=== PATIENT | male | born 1980 | race Caucasian/White ===

== ENCOUNTER 2017-06-09 18:13 | Emergency (ER) | payer BC ==
[2017-06-09 18:29] VITALS: RESP 16; TEMP 99.4
[2017-06-09] MEDS ORDERED: SODIUM CHLORIDE 0.9% 500 ML IV STA (18:44)
--- NOTE | 2017-06-09 18:57 | ED ---
Abdominal Pain HPI - General Chief Complaint: Abdominal Pain Stated Complaint: Abd Pain Time Seen by Provider: 06/09/17 18:38 Source: patient Mode of arrival: ambulatory Limitations: no limitations - History of Present Illness Initial Comments: 36-year-old male patient possessed to emergency department today with complaints of right lower quadrant abdominal pain. States that this has been going on for the last 2 days. Patient states pain worsens when he applies pressure to the area or sits forward. He states occasionally the pain does radiate around to his side. He denies any fever, chills, nausea, vomiting, or diarrhea with this. He states he has been constipated. He states he did have a bowel movement last night however it was hard and difficult to pass. Patient denies any recent rash, shortness breath, chest pain, back pain, numbness, tingling, dizziness, weakness, hematuria, dysuria, urinary urgency, urinary frequency, headache, visual changes, or any other complaints. - Related Data Home Medications Medication Instructions Recorded Confirmed Bisoprolol-Hctz 5-6.25 mg [Ziac 1 tab PO DAILY 06/09/17 06/09/17 5-6.25] Citalopram Hydrobromide [CeleXA] 20 mg PO DAILY 06/09/17 06/09/17 Cyclobenzaprine [Flexeril] 10 mg PO BID PRN 06/09/17 06/09/17 HYDROcodone/APAP 7.5-325MG [[place] 0.5 - 1 tab PO DAILY PRN 06/09/17 06/09/17 7.5-325] Nystatin 100,000Unit/gm Cream 1 applic TOPICAL BID 06/09/17 06/09/17 [Mycostatin Cream] Terbinafine [LamISIL] 250 mg PO DAILY 06/09/17 06/09/17 Triamcinolone 0.1% Cream [Kenalog] 1 applicatio TOPICAL BID 06/09/17 06/09/17 Allergies Allergy/AdvReac Type Severity Reaction Status Date / Time No Known Allergies Allergy Verified 06/09/17 18:39 Review of Systems ROS Statement: Those systems with pertinent positive or pertinent negative responses have been documented in the HPI. ROS Other: All systems not noted in ROS Statement are negative. Past Medical History Past Medical History: Hypertension History of Any Multi-Drug Resistant Organisms: None Reported Past Surgical History: No Surgical Hx Reported Past Psychological History: Anxiety Smoking Status: Current every day smoker Past Alcohol Use History: Occasional Past Drug Use History: None Reported General Exam Limitations: no limitations General appearance: alert, in no apparent distress, other (This is a well- developed, well-nourished adult male patient in no acute distress. Vital signs upon presentation were temperature 99.4F, pulse 73, respirations 16, blood pressure 143/95, pulse ox 99% on room air.) Eye exam: Present: normal appearance, PERRL, EOMI. Absent: scleral icterus, conjunctival injection, periorbital swelling ENT exam: Present: normal exam, normal oropharynx, mucous membranes moist Neck exam: Present: normal inspection. Absent: tenderness, meningismus, lymphadenopathy Respiratory exam: Present: normal lung sounds bilaterally. Absent: respiratory distress, wheezes, rales, rhonchi, stridor Cardiovascular Exam: Present: regular rate, normal rhythm, normal heart sounds. Absent: systolic murmur, diastolic murmur, rubs, gallop, clicks GI/Abdominal exam: Present: soft, tenderness (Right lower quadrant pain/ tenderness with palpation of the right lower quadrant and left lower quadrant.) , normal bowel sounds. Absent: distended, guarding, rebound, rigid Back exam: Present: normal inspection. Absent: CVA tenderness (R), CVA tenderness (L) Neurological exam: Present: alert, oriented X3, CN II-XII intact Psychiatric exam: Present: normal affect, normal mood Skin exam: Present: warm, dry, intact, normal color. Absent: rash Course Vital Signs 06/09/17 06/09/17 18:28 20:10 Temperature 99.4 F Pulse Rate 73 69 Respiratory 16 16 Rate Blood Pressure 143/95 141/77 O2 Sat by Pulse 99 97 Oximetry Medical Decision Making - Medical Decision Making 36-year-old male patient presented for evaluation of right lower quadrant abdominal discomfort. Physical examination did reveal some mild right lower quadrant tenderness. Labs and x-ray were reviewed, results are unremarkable. Patient did report during history that he was not having normal bowel movements , they were harder than usual. I did explain to him that we cannot completely rule out appendicitis at this time. I did discuss possibility of CT scanning with the patient. He did agree to forego scanning at this time. I did educate them regarding the signs or symptoms of appendicitis and urged him to return immediately should he develop any of these symptoms. I instructed him to follow -up with his primary care physician for recheck in 1-2 days. I instructed him to return immediately for any new, worsening, or concerning symptoms. He verbalized understanding and agreed with this plan. - Lab Data Result diagrams: 06/09/17 19:16 06/09/17 19:16 Lab Results 06/09/17 06/09/17 06/09/17 Range/Units 19:16 19:16 19:16 WBC 6.2 (3.8-10.6) k/uL RBC 5.37 (4.30-5.90) m/uL Hgb 16.2 (13.0-17.5) gm/dL Hct 49.9 (39.0-53.0) % MCV 93.0 (80.0-100.0) fL MCH 30.1 (25.0-35.0) pg MCHC 32.4 (31.0-37.0) g/dL RDW 14.5 (11.5-15.5) % Plt Count 152 (150-450) k/uL Neutrophils % 62 % Lymphocytes % 25 % Monocytes % 8 % Eosinophils % 3 % Basophils % 1 % Neutrophils # 3.9 (1.3-7.7) k/uL Lymphocytes # 1.6 (1.0-4.8) k/uL Monocytes # 0.5 (0-1.0) k/uL Eosinophils # 0.2 (0-0.7) k/uL Basophils # 0.0 (0-0.2) k/uL Sodium 141 (137-145) mmol/L Potassium 4.4 (3.5-5.1) mmol/L Chloride 107 (98-107) mmol/L Carbon Dioxide 27 (22-30) mmol/L Anion Gap 7 mmol/L BUN 13 (9-20) mg/dL Creatinine 0.93 (0.66-1.25) mg/dL Est GFR (MDRD) Af Amer >60 (>60 ml/min/1.73 sqM) Est GFR (MDRD) Non-Af >60 (>60 ml/min/1.73 sqM) Glucose 92 (74-99) mg/dL Calcium 9.4 (8.4-10.2) mg/dL Total Bilirubin 0.5 (0.2-1.3) mg/dL AST 28 (17-59) U/L ALT 73 H (21-72) U/L Alkaline Phosphatase 51 (38-126) U/L Total Protein 7.3 (6.3-8.2) g/dL Albumin 4.5 (3.5-5.0) g/dL Amylase 47 (30-110) U/L Lipase 75 (23-300) U/L Urine Color Light Yellow Urine Appearance Clear (Clear) Urine pH 5.5 (5.0-8.0) Ur Specific [place] 1.006 (1.001-1.035) Urine Protein Negative (Negative) Urine Glucose (UA) Negative (Negative) Urine Ketones Negative (Negative) Urine Blood Negative (Negative) Urine Nitrite Negative (Negative) Urine Bilirubin Negative (Negative) Urine Urobilinogen <2.0 (<2.0) mg/dL Ur Leukocyte Esterase Negative (Negative) - Radiology Data Radiology results: report reviewed, image reviewed KUB of the abdomen was obtained and did show scattered gas seen in nondistended small bowel loops. Gas and fecal material seen in nondistended colon and rectum. There is no visceromegaly, pneumoperitoneum, or abnormal calcification appreciated. The lung bases are clear and the osseous structures are intact. Impression by Dr. Talbot shows overall nonobstructive bowel gas pattern. Disposition Clinical Impression: Abdominal pain Disposition: HOME SELF-CARE Condition: Good Instructions: Abdominal Pain (ED) Additional Instructions: Increase fluids. Use stool softeners. Follow up with her primary care physician for recheck in 1-2 days. Return here immediately for any new, worsening, or concerning symptoms. Referrals: Rose Marie Dhillon MD [Primary Care Provider] - 1-2 days Time of Disposition: 20:27
[2017-06-09 19:30] LABS: Appearance,Urine Clear (Clear); Basophils % (A) 1 %; Bilirubin,Urine Negative (Negative); CH 31.8; CHCM 34.4; Eosinophils # (A) 0.2 k/uL (0-0.7); Eosinophils % (A) 3 %; Glucose,Urine (UA) Negative (Negative); HCT 49.9 % (39.0-53.0); HDW 2.43; HGB 16.2 gm/dL (13.0-17.5); Ketones,Urine Negative (Negative); Leukocyte Esterase,Urine Negative (Negative); Luc # (Auto) 0.11; Luc % (Auto) 2; Lymphocytes # (A) 1.6 k/uL (1.0-4.8); Lymphocytes % (A) 25 %; MCH 30.1 pg (25.0-35.0); MCHC 32.4 g/dL (31.0-37.0); Mean Platelet Volume 9.6; Monocytes # (A) 0.5 k/uL (0-1.0); Monocytes % (A) 8 %; Neutrophils # (A) 3.9 k/uL (1.3-7.7); Neutrophils % (A) 62 %; Nitrite,Urine Negative (Negative); PH, Urine 5.5 (5.0-8.0); Protein,Urine Negative (Negative); RBC 5.37 m/uL (4.30-5.90); RDW 14.5 % (11.5-15.5); Specific Gravity,Urine 1.006 (1.001-1.035); UA Billing (MACRO vs. MICRO) CHEM; Urobilinogen,Urine <2.0 mg/dL (<2.0); WBC 6.2 k/uL (3.8-10.6); WBC (Perox) 6.11
[2017-06-09 19:40] LABS: ALT 73 U/L (21-72); AST 28 U/L (17-59); Alkaline Phosphatase 51 U/L (38-126); Amylase 47 U/L (30-110); Anion Gap 7 mmol/L; Blood Urea Nitrogen 13 mg/dL (9-20); Calcium 9.4 mg/dL (8.4-10.2); Carbon Dioxide 27 mmol/L (22-30); Chloride 107 mmol/L (98-107); Glucose 92 mg/dL (74-99); Non-African American GFR(MDRD) >60 (>60 ml/min/1.73 sqM); Potassium 4.4 mmol/L (3.5-5.1); Sodium 141 mmol/L (137-145); Total Bilirubin 0.5 mg/dL (0.2-1.3); Total Protein 7.3 g/dL (6.3-8.2)
--- NOTE | 2017-06-09 20:00 | XR ---
EXAMINATION TYPE: XR KUB DATE OF EXAM: 06/09/2017 7:55 PM CLINICAL HISTORY: Right lower quadrant pain for 2 days. TECHNIQUE: Two Upright KUB images of the abdomen are obtained. COMPARISON: CT abdomen and pelvis July 08, 2010. FINDINGS: Scattered gas is seen in non-distended small bowel loops. Gas and fecal material is seen in non-distended colon and rectum. There is no visceromegaly, pneumoperitoneum, or abnormal calcificati on appreciated. The lung bases are clear and the osseous structures are intact. IMPRESSION: Overall nonobstructive bowel gas pattern.
[2017-06-09 20:11] VITALS: BP 141/77; PULSE 69
[2017-06-09] MEDS ORDERED: MAGNESIUM CITRATE 296 ML BOTTLE PO ONE (20:27)
== END 2017-06-09 20:39 | disposition home or self-care (01) ==
LOC: EC 18:13
DX: R10.31 Right lower quadrant pain (principal); K59.00 Constipation, unspecified; I10 Essential (primary) hypertension; F17.200 Nicotine dependence, unspecified, uncomplicated; Z79.52 Long term (current) use of systemic steroids; Z79.899 Other long term (current) drug therapy
CPT/HCPCS: 36415; 74000; 80053; 80074; 81003; 82150; 83690; 85025; 99284

== ENCOUNTER → 2018-10-01 | Outpatient (CLI) | payer BC ==
[2018-10-01 09:52] LABS: Basophils # (A) 0.1 k/uL (0-0.2); Basophils % (A) 1 %; Eosinophils # (A) 0.3 k/uL (0-0.7); Eosinophils % (A) 3 %; HCT 52.5 % (39.0-53.0); HGB 17.1 gm/dL (13.0-17.5); Lymphocytes # (A) 1.4 k/uL (1.0-4.8); Lymphocytes % (A) 18 %; MCH 30.5 pg (25.0-35.0); MCHC 32.6 g/dL (31.0-37.0); MCV 93.4 fL (80.0-100.0); Mean Platelet Volume 8.5; Monocytes # (A) 0.6 k/uL (0-1.0); Monocytes % (A) 7 %; Neutrophils # (A) 5.5 k/uL (1.3-7.7); Neutrophils % (A) 69 %; Platelet Count 175 k/uL (150-450); RBC 5.63 m/uL (4.30-5.90); RDW 13.3 % (11.5-15.5)
[2018-10-01 10:12] LABS: Potassium 4.6 mmol/L (3.5-5.1)
== END | disposition home or self-care (01) ==
LOC: LABPAT 09:09
PROVIDERS: ATTEND Orthopaedic Surgery
DX: Z01.818 Encounter for other preprocedural examination (principal); M75.101 Unspecified rotator cuff tear or rupture of right shoulder, not specified as traumatic
CPT/HCPCS: 36415; 80051; 85025; 93005

== ENCOUNTER 2018-10-05 08:47 | Day surgery (SDC) | payer BC ==
[2018-10-01 13:45] VITALS: BMI 33.9
--- NOTE | 2018-10-04 09:14 | HP ---
HISTORY AND PHYSICAL CHIEF COMPLAINT: Right shoulder pain. 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 He was cutting wood and noticed pain and then was wrestling someone and pain increased. He is having pain with overhead use and at night. He has tried therapy, medications, and an injection with only partial temporary relief. He notes the pain significantly limits him. PAST MEDICAL HISTORY: Significant for hypertension. PAST SURGICAL HISTORY: Negative. CURRENT MEDICATIONS: Hydrochlorothiazide and citalopram. ALLERGIES: He denies drug allergies. FAMILY HISTORY: Significant for diabetes. SOCIAL HISTORY: Significant for 3/4 pack per day tobacco use and daily alcohol use. REVIEW OF SYSTEMS: Sixteen-point review of systems otherwise reviewed and is noncontributory. PHYSICAL EXAMINATION: On examination, the patient is approximately 6 feet tall, 245 pounds of endomorphic habitus. HEENT exam is nonfocal. Neck is supple. On examination of the right shoulder, he is tender about the anterior subacromial space. He has moderate subacromial crepitus. Active range of motion forward elevation 90 degrees, external rotation with the arm side 75 degrees, internal rotation to L2. Passively I am able to forward flex him to 160 degrees. Motor strength is 5/5 for external rotation, 5 minus over 5 for abduction. Impingement test, Neer test, and Speed tests are positive. His distal neurovascular exam otherwise appears intact in the right upper extremity. MRI report from 07/09/2018 shows a partial thickness bursal surface tear of the rotator cuff. IMPRESSION: Right shoulder impingement with symptomatic partial-thickness rotator cuff tear. RECOMMENDATIONS: I talked to the patient at length regarding his condition and treatment options. At this point, he is quite symptomatic despite conservative measures. After thorough discussion, he opts to proceed with surgery. We will plan to proceed with arthroscopic evaluation with probable subacromial decompression and possible rotator cuff debridement. Risks and benefits were discussed at length in layman's terms. We will likely perform that as an outpatient procedure. MMODL / IJN: [id number] /
[~2018-10-05 08:47] MED LIST: DEXAMETHASONE SOD PHOSPHATE 10 MG/ML 1 ML VIAL IV ONE; HYDROmorphone 0.5 MG/0.5 ML SYRINGE IVP PRN; LACTATED RINGERS 1,000 ML IV SCH; LIDOCAINE 1% 20 ML VIAL (10MG/ML) FOR IV START INTRADERMA PRN; ONDANSETRON 4 MG/2 ML VIAL IVP ONE; SCOPOLAMINE 1.5MG/72HR PATCH TRANSDERM ONE; ceFAZolin IN SWFI 2 GM/20 ML SYRINGE IVP ONE
[2018-10-05] MEDS ORDERED: MIDAZOLAM 2 MG/2 ML VIAL IV ONE (09:50)
[2018-10-05] MEDS ORDERED: MIDAZOLAM 2 MG/2 ML VIAL ONE (10:28)
[2018-10-05] MEDS ORDERED: GLYCOPYRROLATE 0.2 MG/ML 2 ML VIAL ONE (10:28)
[2018-10-05] MEDS ORDERED: LIDOCAINE 1% INJ 10MG/ML (20 ML MDV) ONE (10:28)
[2018-10-05] MEDS ORDERED: NEOSTIGMINE 1 MG/ML 10 ML VIAL ONE (10:28)
[2018-10-05] MEDS ORDERED: ROCURONIUM BROMIDE 10 MG/ML 10 ML VIAL IV ONE (10:28)
[2018-10-05] MEDS ORDERED: ePHEDrine SULFATE/0.9% NACL/PF 50 MG/5 ML SYRINGE IV ONE (10:28)
[2018-10-05] MEDS ORDERED: SUCCINYLCHOLINE CHLORIDE 100 MG/5 ML SYR IV ONE (10:28)
[2018-10-05] MEDS ORDERED: PROPOFOL 10 MG/ML 20 ML VIAL IV ONE (10:28)
[2018-10-05] MEDS ORDERED: fentaNYL (PF) 50 MCG/ML 2 ML AMP ONE (10:28)
[2018-10-05] MEDS ORDERED: ROPIVACAINE 5 MG/ML 30 ML VIAL ONE (10:28)
[2018-10-05] MEDS ORDERED: EPINEPHrine (PF) 1 ML in SODIUM CHLORIDE 0.9% IRRIGATIO 3,000 ML IRRIGATION ONE ×7 (11:07→11:08)
--- NOTE | 2018-10-05 11:58 | P.OP ---
Date of Procedure: 10/05/18 Preoperative Diagnosis: Right shoulder impingement/symptomatic rotator cuff tear Postoperative Diagnosis: Same in addition to 2 cm full-thickness rotator cuff tear, type II superior labral tear Procedure(s) Performed: Right shoulder arthroscopic subacromial decompression/rotator cuff repair/ superior labral debridement Implants: Arthrex 4.75 mm swivel lock anchor 4 Anesthesia: vin KUMAR Surgeon: Christopher Salgado Financial Services Intern #1: Donald Richey Estimated Blood Loss (ml): 10 Pathology: none sent Condition: stable Disposition: PACU Indications for Procedure: The patient's a 37-year-old male presents after injuring his right shoulder or previously with persistent symptoms. He did try conservative measures without much resolution. A discussion of the risks and benefits of operative intervention was made with patient. He opted to proceed. Operative risks to include infection, neurovascular injury, development of blood clots, possible incomplete resolution of symptoms, possible tendon rerupture, and possible need for subsequent procedures was discussed. Informed consent was obtained. Operative Findings: As below Description of Procedure: The patient was brought to the operating room, and after induction of general anesthesia was placed in a beachchair position. A preoperative interscalene block was placed for postoperative analgesia. I examined the right shoulder. There was no gross block to passive motion or gross glenohumeral instability. The right upper extremity was prepped and draped in normal fashion. The bony outlines the acromion, distal clavicle, and coracoid process were outlined with a skin marker. The glenohumeral joint was inflated with 50 mL of saline utilizing a spinal needle from posterior approach. A posterior portal was made through a 5 mm skin incision 1 cm medial and inferior to the posterior lateral border time. A blunt trocar was used to easily into the joint. Diagnostic arthroscopy was performed. An anterior portal was made just lateral to the coracoid process entering the joint above the subscapularis tendon. The subscapularis tendon appeared to be intact. Anterior labrum was intact. The inferior recess was inspected. The posterior labrum was intact. A type II superior labral tear was noted in this was debrided back to stable base with a motorized shaver. The remainder the anchor appeared to be stable and intact. The intra-articular portion of the biceps was intact. On inspection the rotator cuff a full-thickness tear involving the supraspinatus was noted. The posterior portion of the cuff was intact. The arthroscope was placed into the subacromial space. A lateral portal was made 2 centimeters inferior to the anterior lateral border of the acromion. A 2 cm tear involving the supraspinatus was noted with minimal retraction. This was then easily brought back to the greater tuberosity. The soft tissue on the undersurface of the acromion was debrided with a motorized shaver and electrocautery clearly defining the anterior medial and lateral borders as well as the distal clavicle. An anterior inferior acromioplasty was performed with a motorized citlaly starting anterolateral, then extending this posteriorly, then extending this medially. I converted to a flat acromion and this was verified in the posterior and lateral viewing portals. The greater tuberosity was lightly decorticating with a shaver down to a bleeding bony surface. An accessory superior lateral portals made just off the lateral edge of the acromion for anchor placement. 2 anchors were then placed just off the articular surface with the appropriate starting awl. 4.75 mm anchors preloaded with #2 fiber tape were placed. Good purchase was obtained. These fiber tapes were then passed the rotator cuff with a scorpion suture passer. A lateral row was created crisscrossing these tapes. 2 swivel lock anchors were placed laterally. Good purchase was obtained. Final arthroscopic view showed adequate compression at the footprint. The arthroscope was then removed. The portals were closed with simple 3-0 nylon sutures. A sterile dressing was applied in addition to an abductor brace. The patient was then awoken from general anesthesia and transferred to recovery room in good condition. Blood loss was estimated at 10 mL. No complications were incurred. Sponge and needle counts were correct in the case. Aron THOMASON assisted and the major components of the case to include arm positioning, anchor placement, and rotator cuff repair.
[2018-10-05 12:08] VITALS: TEMP 97
[2018-10-05 12:18] VITALS: RESP 16
[2018-10-05 13:39] VITALS: BP 135/78; PULSE 72
--- NOTE | 2018-10-06 07:15 | P.ONQ ---
Anesthesiology Proc Note - PNB - Peripheral Nerve Block Performed Right Interscalene Single Time Out Performed: Yes Procedure Start Time: :51 Procedure Stop Time: :57 Indication: Acute Post-Operative Pain, Requested by physician Sedation Type: Sedate with meaningful contact maintained Preparation: Sterile Dressing Needle Size: 50mm (2") Needle Gauge: 21 Technique: Ultrasound Injectate: 0.5% Ropivacaine (see comment for volume) (ropi .5% 30cc) Blood Aspirated: No Pain Paresthesia on Injection Noted: No Resistance on Injection: Normal Events: Uneventful and Well Tolerated
== END 2018-10-05 13:56 | disposition home or self-care (01) ==
LOC: OR 08:47
PROVIDERS: ATTEND Orthopaedic Surgery
DX: S46.011A Strain of muscle(s) and tendon(s) of the rotator cuff of right shoulder, initial encounter (principal); S43.431A Superior glenoid labrum lesion of right shoulder, initial encounter; X50.9XXA Other and unspecified overexertion or strenuous movements or postures, initial encounter; Y93.72 Activity, wrestling; I10 Essential (primary) hypertension; F17.210 Nicotine dependence, cigarettes, uncomplicated; F32.9 Major depressive disorder, single episode, unspecified; E66.9 Obesity, unspecified; Z68.33 Body mass index [BMI] 33.0-33.9, adult; Z79.899 Other long term (current) drug therapy
CPT/HCPCS: 64415; 29826; 29827; C1713 ×2; J2250; J1100; J2710; J2405; J0171; J2001; J3010; J2795; J0330; J2704; J0690

== ENCOUNTER 2019-04-09 20:02 | Emergency (ER) | payer BC ==
[2019-04-09 20:07] VITALS: TEMP 98.9
[2019-04-09] MEDS ORDERED: DIPH,PERTUS(ACELL)TETVAC-LF 0.5 ML VIAL IM ONE (20:12)
[2019-04-09] MEDS ORDERED: IBUPROFEN 600 MG TAB PO STA (20:12)
[2019-04-09] MEDS ORDERED: ACETAMINOPHEN TAB 325 MG TAB PO STA (20:12)
--- NOTE | 2019-04-09 20:15 | ED ---
General Adult HPI - General Chief complaint: Skin/Abscess/Foreign Body Stated complaint: FB, foot Time Seen by Provider: 04/09/19 20:09 Source: patient, family Mode of arrival: ambulatory Limitations: no limitations - History of Present Illness Initial comments: 38 year-old male patient presents to the emergency department today for evaluation after accidentally shooting his foot with a nail gun. Patient states he accidentally fired a second shot and the nail went into the left great toe at the MTP joint area. Patient states there is minimal pain. Bleeding is controlled. Denies any other injuries. Denies any bleeding disorders. Denies any numbness or tingling to the toe. He is unsure when his last tetanus vaccine was administered. Patient denies any headache, neck pain, back pain, chest pain, shortness of breath, dizziness, weakness, abdominal pain, nausea, vomiting, or difficulties with bowel movements or urination. - Related Data Home Medications Medication Instructions Recorded Confirmed Bisoprolol-Hctz 5-6.25 mg [Ziac 1 tab PO DAILY@1500 06/09/17 04/09/19 5-6.25] Citalopram Hydrobromide [CeleXA] 20 mg PO DAILY@1500 06/09/17 04/09/19 Previous Rx's Medication Instructions Recorded Cephalexin [Keflex] 500 mg PO Q6H #28 cap 04/09/19 Allergies Allergy/AdvReac Type Severity Reaction Status Date / Time No Known Allergies Allergy Verified 04/09/19 20:29 Review of Systems ROS Statement: Those systems with pertinent positive or pertinent negative responses have been documented in the HPI. ROS Other: All systems not noted in ROS Statement are negative. Past Medical History Past Medical History: Hypertension, Musculoskeletal Disorder, Seizure Disorder Additional Past Medical History / Comment(s): seizure w/fever as a baby-nothing since,recent problem w/trouble having BM, seen in [facility], "backed up", was given something, & was able to go & since then has had blood w/wiping History of Any Multi-Drug Resistant Organisms: None Reported Past Surgical History: Orthopedic Surgery Additional Past Surgical History / Comment(s): wisdom teeth removed Past Anesthesia/Blood Transfusion Reactions: Family History of Problems w/ Anesthesia Additional Past Anesthesia/Blood Transfusion Reaction / Comment(s): father had problem w/heart rate we/anesthesia Past Psychological History: Anxiety Smoking Status: Current every day smoker Past Alcohol Use History: Heavy Past Drug Use History: None Reported - Past Family History Mother Family Medical History: No Reported History General Exam Limitations: no limitations General appearance: alert, in no apparent distress, other (Physical well- developed, well-nourished adult male patient in no acute distress. Vital signs upon presentation are temperature 98.9F, pulse 108, respirations 20, blood pressure 174/97, pulse ox 97% on room air.) Eye exam: Present: normal appearance, PERRL, EOMI. Absent: scleral icterus, conjunctival injection, periorbital swelling ENT exam: Present: normal exam, normal oropharynx, mucous membranes moist Respiratory exam: Present: normal lung sounds bilaterally. Absent: respiratory distress, wheezes, rales, rhonchi, stridor Cardiovascular Exam: Present: regular rate, normal rhythm, normal heart sounds. Absent: systolic murmur, diastolic murmur, rubs, gallop, clicks Extremities exam: Present: full ROM, normal capillary refill, other (There is nail protruding from the lateral aspect of the left MTP joint. Minimal bleeding. Skin is otherwise pink, warm, dry. Cap refills less than 3 seconds. Pedal and posttibial pulses are 2+ and equal bilaterally.). Absent: normal inspection, tenderness, pedal edema, joint swelling, calf tenderness Neurological exam: Present: alert, oriented X3, CN II-XII intact Psychiatric exam: Present: normal affect, normal mood Skin exam: Present: warm, dry, intact, normal color. Absent: rash Course Vital Signs 04/09/19 04/09/19 20:03 22:01 Temperature 98.9 F Pulse Rate 108 H 92 Respiratory 20 16 Rate Blood Pressure 174/97 136/90 O2 Sat by Pulse 97 98 Oximetry Procedures - Nerve Block Consent Obtained: verbal consent Local Anesthetic Used: Lidocaine 1% Amount of anesthesia used: 6 Side: left Nerve Blocks: digital (Left great toe) Procedure Successful: Yes Complications: none Patient Tolerated Procedure: well Medical Decision Making - Medical Decision Making 38 old male patient presented to the emergency department today for evaluation after accidentally shooting a nail into his toe. Physical examination did reveal a nail protruding from the lateral aspect of the left great toe. X-ray was obtained. Digital block was performed nail was removed. Nail removed very easily indicating soft tissue protrusion only. He was irrigated. Started on antibiotics. He'll be discharged at this time to follow-up with his primary care physician for recheck. Return parameters were discussed in detail. He verbalizes understanding and agrees with this plan. - Radiology Data Radiology results: report reviewed, image reviewed 3 views of the left foot were obtained. Report reviewed in its entirety. Impression by Dr. Talbot shows metallic foreign body or nail piercing the first proximal phalanx proximal to mid diaphysis from dorsal approach extending laterally and anteriorly. No acute fracture dislocation. Disposition Clinical Impression: Puncture wound of left great toe with foreign body without damage to nail Disposition: HOME SELF-CARE Condition: Good Instructions (If sedation given, give patient instructions): Puncture Wound (ED) Additional Instructions: Keep wound clean and dry. Monitor for signs or symptoms of infection including but not limited to redness, swelling, drainage of pus, fever, or chills. Complete antibiotic prescription in full. Follow-up with your primary care physician for recheck of the area in 1-2 days. Return to the emergency department immediately for any new, worsening, or concerning symptoms. Prescriptions: Cephalexin [Keflex] 500 mg PO Q6H #28 cap Is patient prescribed a controlled substance at d/c from ED?: No Referrals: Rose Marie Dhillon MD [Primary Care Provider] - 1-2 days Time of Disposition: 21:54
[2019-04-09] MEDS ORDERED: LIDOCAINE 1% INJ 10MG/ML (20 ML MDV) SQ ONE (20:57)
--- NOTE | 2019-04-09 20:58 | XR ---
EXAMINATION TYPE: XR foot complete LT DATE OF EXAM: 04/09/2019 CLINICAL HISTORY: Foot pain after injury. TECHNIQUE: Frontal, lateral, and oblique images of the left foot are obtained. COMPARISON: None FINDINGS: Patient is unable to remove shoe making evaluation slightly suboptimal. There is metallic f oreign body or nail piercing the first proximal phalanx proximal to mid diaphysis from dorsal approac h extending laterally and inferiorly. No acute fracture or dislocation is evident. IMPRESSION: As above.
[2019-04-09] MEDS ORDERED: CEPHALEXIN 500MG STARTER PACK 4 CAP BTL PO STA (21:51)
[2019-04-09 22:02] VITALS: BP 136/90; PULSE 92; RESP 16
--- NOTE | 2019-04-11 06:57 | CDI ---
Documentation Clarification OP Dear Mila DOAN, [facility] Please do the addendum for foreign body removal procedure. Thank you, Marla Yun Janitorial Manager If you have any question, Please contact manager cath lab at [phone] documentation completed MTDD
== END 2019-04-09 22:02 | disposition home or self-care (01) ==
LOC: EC 20:02
DX: S91.142A Puncture wound with foreign body of left great toe without damage to nail, initial encounter (principal); I10 Essential (primary) hypertension; F41.9 Anxiety disorder, unspecified; F17.200 Nicotine dependence, unspecified, uncomplicated; Z79.899 Other long term (current) drug therapy; Z23 Encounter for immunization; W45.0XXA Nail entering through skin, initial encounter; Y92.89 Other specified places as the place of occurrence of the external cause
CPT/HCPCS: 99283; 64450; 90471; 73630; 90715; J2001

== ENCOUNTER 2022-09-25 01:46 | Emergency (ER) | payer BC ==
[2022-09-25] MEDS ORDERED: SODIUM CHLORIDE 0.9% 1,000 ML IV STA (02:12)
[2022-09-25] MEDS ORDERED: MECLIZINE 12.5 MG TAB PO STA (02:12)
[2022-09-25 03:02] LABS: ALT 90 U/L (4-49); AST 45 U/L (17-59); African American GFR (CKD) >90 (>60 ml/min/1.73 sqM); Albumin 4.9 g/dL (3.5-5.0); Alkaline Phosphatase 56 U/L (38-126); Anion Gap 9 mmol/L; Basophils # (A) 0.1 k/uL (0-0.2); Basophils % (A) 1 %; Blood Urea Nitrogen 13 mg/dL (9-20); Calcium 9.3 mg/dL (8.4-10.2); Carbon Dioxide 27 mmol/L (22-30); Chloride 103 mmol/L (98-107); Eosinophils # (A) 0.2 k/uL (0-0.7); Eosinophils % (A) 2 %; Glucose 126 mg/dL (74-99); HCT 50.8 % (39.0-53.0); Lymphocytes # (A) 1.8 k/uL (1.0-4.8); Lymphocytes % (A) 24 %; MCH 29.3 pg (25.0-35.0); MCHC 33.6 g/dL (31.0-37.0); MCV 87.2 fL (80.0-100.0); Mean Platelet Volume 8.8; Monocytes # (A) 0.5 k/uL (0-1.0); Monocytes % (A) 7 %; Neutrophils # (A) 4.8 k/uL (1.3-7.7); Neutrophils % (A) 65 %; Non-African American GFR(CKD) >90 (>60 ml/min/1.73 sqM); Platelet Count 183 k/uL (150-450); Potassium 3.9 mmol/L (3.5-5.1); RBC 5.82 m/uL (4.30-5.90); RDW 12.5 % (11.5-15.5); Sodium 139 mmol/L (137-145); Total Protein 8.3 g/dL (6.3-8.2); WBC 7.5 k/uL (3.8-10.6)
[2022-09-25 03:04] VITALS: RESP 16
--- NOTE | 2022-09-25 03:28 | XR ---
EXAMINATION TYPE: XR chest 2V DATE OF EXAM: 09/25/2022 COMPARISON: 05/29/2015 HISTORY: Dizziness TECHNIQUE: FINDINGS: Heart and mediastinum are normal. Lungs are clear. Diaphragm is normal. Bony thorax appears normal. IMPRESSION: Normal chest. No change
--- NOTE | 2022-09-25 04:07 | ED ---
Dizziness HPI - General Chief Complaint: Dizziness Stated Complaint: dizziness Time Seen by Provider: 09/25/22 02:00 Source: patient Mode of arrival: ambulatory Limitations: no limitations - History of Present Illness Initial Comments: Patient is a 41-year-old male presenting with chief complaint of dizziness. Patient states dizziness has been intermittent since about 6 PM. He states he was at work when the dizziness was persisting and he could not get his work done so he reported to the ER for evaluation. Patient has history of anxiety and states that hospitals make him extremely nervous. He denies any chest pain or difficulty breathing. No palpitations, numbness, tingling, weakness. No headache, vision or hearing changes, fever, chills, neck pain or stiffness, cough, congestion, sore throat, ear pain, tinnitus. Patient describes the di zziness as a lightheadedness. - Related Data Home Medications Medication Instructions Recorded Confirmed Bisoprolol-Hctz 5-6.25 mg [Ziac 1 tab PO DAILY@1500 06/09/17 04/09/19 5-6.25] Citalopram Hydrobromide [CeleXA] 20 mg PO DAILY@1500 06/09/17 04/09/19 Previous Rx's Medication Instructions Recorded Cephalexin [Keflex] 500 mg PO Q6H #28 cap 04/09/19 Meclizine [Antivert] 25 mg PO BID PRN #20 tab 09/25/22 Allergies Allergy/AdvReac Type Severity Reaction Status Date / Time No Known Allergies Allergy Verified 04/09/19 20:29 Review of Systems ROS Statement: Those systems with pertinent positive or pertinent negative responses have been documented in the HPI. ROS Other: All systems not noted in ROS Statement are negative. Past Medical History Past Medical History: Hypertension, Musculoskeletal Disorder, Seizure Disorder Additional Past Medical History / Comment(s): seizure w/fever as a baby-nothing since,recent problem w/trouble having BM, seen in [facility], "backed up", was given something, & was able to go & since then has had blood w/wiping History of Any Multi-Drug Resistant Organisms: None Reported Past Surgical History: Orthopedic Surgery Additional Past Surgical History / Comment(s): wisdom teeth removed Past Anesthesia/Blood Transfusion Reactions: Family History of Problems w/ Anesthesia Additional Past Anesthesia/Blood Transfusion Reaction / Comment(s): father had problem w/heart rate we/anesthesia Past Psychological History: Anxiety Smoking Status: Vaper Past Alcohol Use History: Heavy, Occasional Past Drug Use History: None Reported - Past Family History Mother Family Medical History: No Reported History General Exam Limitations: no limitations General appearance: alert, in no apparent distress Head exam: Present: atraumatic, normocephalic, normal inspection Eye exam: Present: normal appearance, PERRL, EOMI. Absent: scleral icterus, conjunctival injection, periorbital swelling Pupils: Present: normal accommodation Neck exam: Present: normal inspection, full ROM. Absent: tenderness Respiratory exam: Present: normal lung sounds bilaterally. Absent: respiratory distress, wheezes, rales, rhonchi, stridor Cardiovascular Exam: Present: normal rhythm, tachycardia, normal heart sounds. Absent: systolic murmur, diastolic murmur, rubs, gallop, clicks Neurological exam: Present: alert, oriented X3, CN II-XII intact Expanded Patient oriented to: Present: person, place, time Speech: Present: fluid speech Cranial nerves: EOM's Intact: Normal, Facial Sensation: Normal Cerebellar function: Finger to Nose: Normal Sensory exam: Upper Extremity Light Touch: Normal, Lower Extremity Light Touch: Normal Eye Response: (4) open spontaneously Motor Response: (6) obeys commands Verbal Response: (5) oriented Angelic Total: 15 Psychiatric exam: Present: normal affect, normal mood Skin exam: Present: warm, dry, intact, normal color. Absent: rash Course Vital Signs 09/25/22 09/25/22 01:50 03:01 Temperature 98.4 F Pulse Rate 102 H 90 Respiratory 18 16 Rate Blood Pressure 150/92 156/95 O2 Sat by Pulse 98 97 Oximetry EKG Findings - EKG Comments: EKG Findings:: Sinus tachycardia ventricular rate 105. IA interval 124. QRS 104. QT 347. QTc 408. T wave inversion in leads III and aVF, those in leadIII appear consistent with old EKG. Medical Decision Making - Medical Decision Making Was pt. sent in by a medical professional or institution (, PA, VEHICLE CHECK IN CLERK, urgent care, hospital, or assisted...) When possible be specific @ -No Did you speak to anyone other than the patient for history (EMS, parent, family, police, friend...)? What history was obtained from this source @ -No Did you review nursing and triage notes (agree or disagree)? Why? @ -I reviewed and agree with nursing and triage notes Were old charts reviewed (outside hosp., previous admission, EMS record, old EKG, old radiological studies, urgent care reports/EKG's, assisted records)? Report findings @ -No old charts were reviewed Differential Diagnosis (chest pain, altered mental status, abdominal pain women, abdominal pain men, vaginal bleeding, weakness, fever, dyspnea, syncope, headache, dizziness, GI bleed, back pain, seizure, CVA, palpatations, mental health)? @ -MDM Differential Dizziness: Benign paroxysmal positional Vertigo, Menieres disease, otitis media, acoustic neuroma, vertebrobasilar insufficiency, cerebellar stroke, encephalitis, hypovolemic, arrhythmia, coronary artery syndrome, anemia this is not meant to be an all-inclusive list EKG interpreted by me (3pts min.). @ -As above X-rays interpreted by me (1pt min.). @ -Chest x-ray shows no acute process CT interpreted by me (1pt min.). @ -None done U/S interpreted by me (1pt. min.). @ -None done What testing was considered but not performed or refused? (CT, X-rays, U/S, labs)? Why? @ -None What meds were considered but not given or refused? Why? @ -None Did you discuss the management of the patient with other professionals (professionals i.e. , PA, VEHICLE CHECK IN CLERK, lab, RT, psych nurse, social service coordinator, molding and trim installer, teacher, police patrol officer, case packer and sealer)? Give summary @ -No Was smoking cessation discussed for >3mins.? @ -No Was critical care preformed (if so, how long)? @ -No Were there social determinants of health that impacted care today? How? (Homelessness, low income, unemployed, alcoholism, drug addiction, transportation, low edu. Level, literacy, decrease access to med. care, detention, rehab)? @ -No Was there de-escalation of care discussed even if they declined (Discuss DNR or withdrawal of care, Hospice)? DNR status @ -No What co-morbidities impacted this encounter? (DM, HTN, Smoking, COPD, CAD, Cancer, CVA, ARF, Chemo, Hep., AIDS, mental health diagnosis, sleep apnea, morbid obesity)? @ -None Was patient admitted / discharged? Hospital course, mention meds given and route, prescriptions, significant lab abnormalities, going to OR and other pertinent info. @ -. Patient is a 41-year-old male presenting with chief complaint of intermittent lightheadedness that started within the last 24 hours. Denies any headache, chest pain, shortness of breath, palpitations. On physical examin ation there are no focal neurological deficits. Lab work is essentially unremarkable. Troponin is less than 0.012. EKG shows sinus tachycardia, patient admits to anxiety and on reassessment he is in sinus rhythm. Chest x- ray shows no acute process. Patient was given meclizine, on reassessment he reports improvement in his symptoms. He is provided with meclizine prescription and instructed to follow-up with his PCP. Discharged home. Follow-up with PCP. Report back to ER with any new or worsening symptoms. Discussed return parameters and answered all questions. Patient conveyed verbal understanding and agreed to the plan. I discussed this case in detail with my attending Dr. Baltazar Undiagnosed new problem with uncertain prognosis? @ -No Drug Therapy requiring intensive monitoring for toxicity (Heparin, Nitro, Insulin, Cardizem)? @ -No Were any procedures done? @ -No Diagnosis/symptom? @ -BPPV Acute, or Chronic, or Acute on Chronic? @ -Acute Uncomplicated (without systemic symptoms) or Complicated (systemic symptoms)? @ -Uncomplicated Side effects of treatment? @ -No Exacerbation, Progression, or Severe Exacerbation? @ -No Poses a threat to life or bodily function? How? (Chest pain, USA, VT, pneumonia, PE, COPD, DKA, ARF, appy, cholecystitis, CVA, Diverticulitis, Homicidal, Suicidal, threat to staff... and all critical care pts) @ -No - Lab Data Result diagrams: 09/25/22 02:26 09/25/22 02:26 Lab Results 09/25/22 09/25/22 09/25/22 Range/Units 02: 02: 02: WBC 7.5 (3.8-10.6) k/uL RBC 5.82 (4.30-5.90) m/uL Hgb 17.0 (13.0-17.5) gm/dL Hct 50.8 (39.0-53.0) % MCV 87.2 (80.0-100.0) fL MCH 29.3 (25.0-35.0) pg MCHC 33.6 (31.0-37.0) g/dL RDW 12.5 (11.5-15.5) % Plt Count 183 (150-450) k/uL MPV 8.8 Neutrophils % 65 % Lymphocytes % 24 % Monocytes % 7 % Eosinophils % 2 % Basophils % 1 % Neutrophils # 4.8 (1.3-7.7) k/uL Lymphocytes # 1.8 (1.0-4.8) k/uL Monocytes # 0.5 (0-1.0) k/uL Eosinophils # 0.2 (0-0.7) k/uL Basophils # 0.1 (0-0.2) k/uL Sodium 139 (137-145) mmol/L Potassium 3.9 (3.5-5.1) mmol/L Chloride 103 (98-107) mmol/L Carbon Dioxide 27 (22-30) mmol/L Anion Gap 9 mmol/L BUN 13 (9-20) mg/dL Creatinine 0.92 (0.66-1.25) mg/dL Est GFR (CKD-EPI)AfAm >90 (>60 ml/min/1.73 sqM) Est GFR (CKD-EPI)NonAf >90 (>60 ml/min/1.73 sqM) Glucose 126 H (74-99) mg/dL Plasma Lactic Acid Marty 1.1 (0.7-2.0) mmol/L Calcium 9.3 (8.4-10.2) mg/dL Total Bilirubin 1.0 (0.2-1.3) mg/dL AST 45 (17-59) U/L ALT 90 H (4-49) U/L Alkaline Phosphatase 56 (38-126) U/L Troponin I (0.000-0.034) ng/mL Total Protein 8.3 H (6.3-8.2) g/dL Albumin 4.9 (3.5-5.0) g/dL 09/25/22 Range/Units 02:26 WBC (3.8-10.6) k/uL RBC (4.30-5.90) m/uL Hgb (13.0-17.5) gm/dL Hct (39.0-53.0) % MCV (80.0-100.0) fL MCH (25.0-35.0) pg MCHC (31.0-37.0) g/dL RDW (11.5-15.5) % Plt Count (150-450) k/uL MPV Neutrophils % % Lymphocytes % % Monocytes % % Eosinophils % % Basophils % % Neutrophils # (1.3-7.7) k/uL Lymphocytes # (1.0-4.8) k/uL Monocytes # (0-1.0) k/uL Eosinophils # (0-0.7) k/uL Basophils # (0-0.2) k/uL Sodium (137-145) mmol/L Potassium (3.5-5.1) mmol/L Chloride (98-107) mmol/L Carbon Dioxide (22-30) mmol/L Anion Gap mmol/L BUN (9-20) mg/dL Creatinine (0.66-1.25) mg/dL Est GFR (CKD-EPI)AfAm (>60 ml/min/1.73 sqM) Est GFR (CKD-EPI)NonAf (>60 ml/min/1.73 sqM) Glucose (74-99) mg/dL Plasma Lactic Acid Marty (0.7-2.0) mmol/L Calcium (8.4-10.2) mg/dL Total Bilirubin (0.2-1.3) mg/dL AST (17-59) U/L ALT (4-49) U/L Alkaline Phosphatase (38-126) U/L Troponin I <0.012 (0.000-0.034) ng/mL Total Protein (6.3-8.2) g/dL Albumin (3.5-5.0) g/dL Disposition Clinical Impression: BPPV (benign paroxysmal positional vertigo) Disposition: HOME SELF-CARE Condition: Good Instructions (If sedation given, give patient instructions): Benign Paroxysmal Positional Vertigo (ED), Dizziness (ED) Additional Instructions: Follow-up with PCP. Report back to ER with any new or worsening symptoms. Take medication as prescribed. Prescriptions: Meclizine [Antivert] 25 mg PO BID PRN #20 tab PRN Reason: Vertigo Is patient prescribed a controlled substance at d/c from ED?: No Referrals: Elsafy,Ryan, MD [Primary Care Provider] - 1-2 days Time of Disposition: 04:07
[2022-09-25 04:28] VITALS: BP 148/76; PULSE 88; TEMP 98
== END 2022-09-25 04:28 | disposition home or self-care (01) ==
LOC: EC 01:46
DX: H81.10 Benign paroxysmal vertigo, unspecified ear (principal); I10 Essential (primary) hypertension; F41.9 Anxiety disorder, unspecified
CPT/HCPCS: 36415; 71046; 80053; 83605; 84484; 85025; 93005; 99284

== ENCOUNTER → 2023-05-18 | Outpatient (CLI) | payer BC ==
--- NOTE | 2023-05-18 18:15 | CA ---
Transthoracic Echo Report Name: Vimal Drummond Age: 42 Gender: M : 1980 Exam Date: 05/18/2023 14:41 Exam Location: [facility] Ht (in): 72 Wt (lb): 270 Ordering Physician: Ryan Gonzales MD Attending/Referring Phys: Photoengraving Proofer Apprentice Monae Cole RDCS Procedure CPT: Indications: S83.8X2A SPRAIN OF OTHER SPECIFIED PARTS OF LEFT K Cardiac Hx: Technical Quality: Fair Contrast 1: Total Dose (mL): Contrast 2: Total Dose (mL): MEASUREMENTS (Male / Female) Normal Values 2D ECHO LV Diastolic Diameter PLAX 4.4 cm 4.2 - 5.9 / 3.9 - 5.3 cm LV Systolic Diameter PLAX 3.3 cm IVS Diastolic Thickness 0.9 cm 0.6 - 1.0 / 0.6 - 0.9 cm LVPW Diastolic Thickness 0.9 cm 0.6 - 1.0 / 0.6 - 0.9 cm LV Relative Wall Thickness 0.4 RV Internal Dim ED PLAX 3.4 cm LA Volume 48.2 cm??? 18 - 58 / 22 - 52 cm??? M-MODE Aortic Root Diameter MM 2.9 cm LA Systolic Diameter MM 4.7 cm LA Ao Ratio MM 1.7 AV Cusp Separation MM 2.0 cm DOPPLER AV Peak Velocity 130.0 cm/s AV Peak Gradient 6.8 mmHg AV Mean Velocity 104.9 cm/s AV Mean Gradient 4.6 mmHg AV Velocity Time Integral 26.7 cm LVOT Peak Velocity 109.6 cm/s LVOT Peak Gradient 4.8 mmHg LVOT Velocity Time Integral 20.8 cm MV Area PHT 3.8 cm??? Mitral E Point Velocity 75.0 cm/s Mitral A Point Velocity 77.0 cm/s Mitral E to A Ratio 1.0 MV Deceleration Time 199.0 ms MV E' Velocity 8.2 cm/s Mitral E to MV E' Ratio 9.1 FINDINGS Left Ventricle Normal Left ventricular size, wall thickness, systolic function with no obvious regional wall motion abnormalities. Normal Left ventricular diastolic filling pattern. Left ventricular ejection fraction is estimated at 55-60 %. Right Ventricle Normal right ventricular size and function. Right Atrium Normal right atrial size. Left Atrium Normal left atrial size. Mitral Valve Structurally normal mitral valve. No mitral stenosis, or prolapse.trace to mild mitral regurgitation. Aortic Valve No aortic valve stenosis or regurgitation. Tricuspid Valve Structurally normal tricuspid valve. Trace to mild tricuspid regurgitation. Pulmonic Valve Pulmonic valve not well visualized. Pericardium No pericardial effusion. Aorta Normal size aortic root and proximal ascending aorta. CONCLUSIONS 1. Normal left ventricle size and systolic function 2. Trace to mild mitral and tricuspid regurgitation Previewed by: Dr. Deja Richardson MD (Electronically Signed) Final Date: 18 May 2023 18:14
== END | disposition home or self-care (01) ==
LOC: RADECHMAIN 14:15
PROVIDERS: ATTEND Internal Medicine
DX: S83.8X2A Sprain of other specified parts of left knee, initial encounter (principal); I08.1 Rheumatic disorders of both mitral and tricuspid valves; I11.9 Hypertensive heart disease without heart failure; I25.2 Old myocardial infarction; X58.XXXA Exposure to other specified factors, initial encounter
CPT/HCPCS: 93306